=== PATIENT | female | born 1965 | race Caucasian/White ===

== ENCOUNTER 2017-07-01 13:39 | Emergency (ER) | payer MEDICARE, OTHER ==
[2017-07-01] MEDS ORDERED: IPRATROPIUM/ALBUTEROL 3 ML NEB INH STA (14:13)
--- NOTE | 2017-07-01 14:16 | ED Physician Documentation ---
PD HPI DYSPNEA - Stated complaint Stated Complaint: DIFFICULTY BREATHING - Chief complaint Chief Complaint: Resp - History obtained from History obtained from: Patient, Family - History of Present Illness Timing - onset: Other (52-year-old woman with history of COPD. She wears Oxygen at night but not during the day. Otherwise has a rescue inhaler but no other chronic therapy for COPD. Her baseline sats are usually run 89%. She has been sick for 5 days with a productive cough, she had fevers at the outset, now gone. She saw her doctor 2 days ago hoping just for an antibiotic prescription but was told to come to the emergency department instead. Because of stubbornness it took her another 48 hours to present. She she feels like she is improving on her own without the antibiotics.) Review of Systems Constitutional: denies: Fever, Chills, Fatigue Nose: denies: Rhinorrhea / runny nose, Congestion Throat: denies: Sore throat Cardiac: denies: Chest pain / pressure, Palpitations Respiratory: reports: Dyspnea, Cough PD PAST MEDICAL HISTORY - Present Medications Home Medications: Ambulatory Orders Medication Instructions Recorded Confirmed Amox/Clav 875/125 [Augmentin] 1 each PO Q12H #14 tablet 07/01/17 Fluticasone/Salmeterol [Advair 1 each IH BID #3 blst.w.dev 07/01/17 500-50 Diskus] predniSONE [Deltasone] 20 mg PO [id number] #21 tab 07/01/17 PD ED PE NORMAL - Vitals Vital signs reviewed: Yes - General General: Alert and oriented X 3, No acute distress - HEENT HEENT: PERRL, EOMI - Neck Neck: Supple, no meningeal sign, No bony TTP - Cardiac Cardiac: RRR, No murmur - Respiratory Respiratory: No respiratory distress, Other (Wheezy and rhonchorous throughout) - Abdomen Abdomen: Non tender - Back Back: No CVA TTP, No spinal TTP - Derm Derm: Normal color, Warm and dry - Extremities Extremities: No edema, No calf tenderness / cord - Neuro Neuro: Alert and oriented X 3 Eye Opening: Spontaneous Motor: Obeys Commands Verbal: Oriented GCS Score: 15 - Psych Psych: Normal mood, Normal affect Results - Vitals Vitals: Vital Signs - 24 hr 07/01/17 07/01/17 13:53 14:22 Temperature 36.6 C Heart Rate 89 73 Respiratory 20 19 Rate Blood Pressure 117/70 O2 Saturation 76 L Oxygen O2 Source Nasal cannula - EKG (time done) 1358 Rate: Rate (enter#) (76) Rhythm: NSR, LAE [place]: Normal Intervals: Normal HI QRS: Normal Ischemia: Q waves (anterior) Computer interpretation: Agree with computer PD MEDICAL DECISION MAKING - ED course ED course: After single DuoNeb she was no longer hypoxic. She very much wanted to go home. Beside usual burst of steroids, antibiotics, I will also put her on a long-acting medication since she is on 1 and she is advised to follow-up with her doctor for refills and recheck. Also she was counseled to quit smoking. Departure - Departure Disposition: Home, Self Care Clinical Impression: COPD exacerbation Condition: Good Record reviewed to determine appropriate education?: Yes Instructions: COPD Dc, ED Smoking Cessation Prescriptions: Amox/Clav 875/125 [Augmentin] 1 each PO Q12H #14 tablet Fluticasone/Salmeterol [Advair 500-50 Diskus] 1 each IH BID #3 blst.w.dev predniSONE [Deltasone] 20 mg PO [id number] #21 tab Comments: Call your doctor to arrange a follow-up appointment, make the next available appointment. In the interim, return anytime if worse or if new symptoms develop.
[2017-07-01 15:11] VITALS: BP 114/74
== END 2017-07-01 14:48 | disposition home or self-care (01) ==
LOC: ED 13:39
DX: J44.1 Chronic obstructive pulmonary disease with (acute) exacerbation (principal); Z99.81 Dependence on supplemental oxygen
CPT/HCPCS: 93005; 94640; 94664; 99283; 99284

== ENCOUNTER 2022-12-13 10:53 | Outpatient (CLI) | payer MEDICARE, OTHER | END 2022-12-13 10:54 | disposition critical access hospital (66) | LOC: EMS 10:53 | DX: R06.09 Other forms of dyspnea (principal); R05.9 Cough, unspecified; R09.02 Hypoxemia; Z99.81 Dependence on supplemental oxygen | CPT/HCPCS: A0425; A0427 ==